=== PATIENT | female | born 1960 | race Caucasian/White ===

== ENCOUNTER 2024-02-24 10:11 | Emergency (ER) | payer MEDICARE ==
[~2024-02-24] VITALS: Ht 162.6 cm; Wt 52.3 kg
[2024-02-24 10:58] LABS: ALBUMIN 3.4 G/DL (3.4-5.0); ANION GAP 4 (8-16); BASOPHILS % (AUTO) 0.5 % (0-1); BLOOD UREA NITROGEN 8 MG/DL (7-18); BUN/CREATININE RATIO 12.7 (10.0-20.0); CALCIUM 8.3 MG/DL (8.5-10.1); CHLORIDE 98 MMOL/L (99-107); CREATININE 0.63 MG/DL (0.40-0.90); EOSINOPHILS % (AUTO) 0.2 % (0-6); GLUCOSE 83 MG/DL (70-104); HEMATOCRIT 38.1 % (35.0-45.0); LYMPHOCYTES # (AUTO) 0.8 X10'3 (1.1-4.8); LYMPHOCYTES % (AUTO) 17.5 % (21-51); MEAN CORPUSCULAR HEMOGLOBIN 29.9 PG (27.0-31.0); MEAN CORPUSCULAR VOLUME 88.1 FL (78-98); MEAN PLATELET VOLUME 9.9 FL (7.4-10.4); MONOCYTES # (AUTO) 0.6 X10'3 (0-0.9); MONOCYTES % (AUTO) 12.3 % (2-12); NEUTROPHILS # (AUTO) 3.2 X10'3 (1.8-7.7); NEUTROPHILS % (AUTO) 69.5 % (42-75); PLATELET COUNT 135 X10'3 (140-440); POTASSIUM 4.2 MMOL/L (3.5-5.1); RED BLOOD COUNT 4.33 X10'6 (4.20-5.60); RED CELL DISTRIBUTION WIDTH 13.2 % (11.5-14.5); SODIUM 131 MMOL/L (135-145); TOTAL CARBON DIOXIDE 28.8 MMOL/L (24-32); WHITE BLOOD COUNT 4.7 X10'3 (4.5-11.0); eCRCL 74 ML/MIN; eGFR > 90 ML/MIN
[2024-02-24] MEDS: ipratropium/albuterol 3ml nebule NEB ONE (11:14)
[2024-02-24 11:17] VITALS: PULSE 58; RESP 18; O2SAT 98
[2024-02-24 11:25] VITALS: PULSE 65; RESP 12; O2SAT 98
[2024-02-24] MEDS: predniSONE 20 mg tablet PO ONE (11:33)
[2024-02-24] MEDS ORDERED: PSEU120T56 PO (12:13)
[2024-02-24] MEDS ORDERED: PRED20TA PO (12:13)
[2024-02-24 12:40] VITALS: BP 107/64; PULSE 81; RESP 15; TEMP 97.4; O2SAT 98
== END 2024-02-24 12:47 | disposition home or self-care (01) ==
LOC: ER 10:12
DX: U07.1 COVID-19 (principal); J44.1 Chronic obstructive pulmonary disease with (acute) exacerbation; Z88.0 Allergy status to penicillin
CPT/HCPCS: 36415; 71045; 80048; 85025; 94640; 99284; J7512; Z7610; 94760